=== PATIENT | male | born 1980 | race Caucasian/White ===

== ENCOUNTER 2020-05-14 06:30 | Inpatient (IN) | payer OTHER ==
[~2020-05-14] VITALS: Ht 177.8 cm; Wt 80.8 kg
[2020-05-14 06:40] VITALS: Ht 177.8 cm; Wt 80.8 kg
[2020-05-14 07:42] LABS: BASOPHIL % 0.3 % (0.2-1.5); PLATELET COUNT 233 x10^3mcL (152-348); RED CELL DISTRIBUTION WIDTH 13.3 % (12.1-16.2)
[2020-05-14 08:36] LABS: CARBON DIOXIDE 28.5 mmol/L (21-32); CHLORIDE SERUM 103 mmol/L (98-107); CREATININE SERUM 0.7 mg/dL (0.7-1.3); GFR1 > 60 mL/min; GLUCOSE SERUM 118 mg/dL (74-106); POTASSIUM SERUM 4.4 mmol/L (3.5-5.1); SODIUM SERUM 138 mmol/L (136-145)
[2020-05-14 08:41] LABS: ALBUMIN 4.2 g/dL (3.4-5.0); ALKALINE PHOSPHATASE 74 U/L (46-116); ALT/SGPT 78 U/L (16-63); AST/SGOT 40 U/L (15-37); BILIRUBIN TOTAL 0.8 mg/dL (0.20-1.00); LIPASE 123 IU/L (73-393); TOTAL PROTEIN, SERUM 7.1 g/dL (6.4-8.2)
[2020-05-14 10:31] LABS: UA SPECIFIC GRAVITY 1.015 (1.005-1.035); microscopic required? YES; urine erythrocyte NEGATIVE (NEGATIVE)
[2020-05-14 14:20] LABS: CHOLESTEROL/HDL RATIO 2.8; MAGNESIUM 2.2 mg/dL (1.8-2.4); PHOSPHOROUS 3.5 mg/dL (2.5-4.9)
[2020-05-14 14:22] LABS: T3 TOTAL 1.5 ng/mL
[2020-05-14 14:50] VITALS: BP 142/61
[2020-05-14 16:27] LABS: FREE T4 1.03 ng/dL (0.76-1.46); FREE THYROXINE INDEX 2.5 ug/dL (1.4-4.5); T4(THYROXINE) 7.5 ug/dL (4.7-13.3)
[2020-05-14 18:20] VITALS: BP 155/81
[2020-05-14 20:50] VITALS: BP 135/78
[2020-05-15 05:32] VITALS: BP 127/76
[2020-05-15 06:18] LABS: BASOPHIL % 0.2 % (0.2-1.5); PLATELET COUNT 212 x10^3mcL (152-348); RED CELL DISTRIBUTION WIDTH 13.8 % (12.1-16.2)
[2020-05-15 07:00] LABS: CARBON DIOXIDE 21.7 mmol/L (21-32); CHLORIDE SERUM 105 mmol/L (98-107); CREATININE SERUM 0.6 mg/dL (0.7-1.3); GFR1 > 60 mL/min; GLUCOSE SERUM 99 mg/dL (74-106); POTASSIUM SERUM 4.2 mmol/L (3.5-5.1); SODIUM SERUM 141 mmol/L (136-145)
[2020-05-15 07:48] VITALS: BP 145/87
[2020-05-15 12:05] VITALS: BP 152/87
[2020-05-15 16:10] VITALS: BP 139/89
[2020-05-15 20:15] VITALS: BP 120/71
[2020-05-16 05:45] VITALS: BP 114/79
[2020-05-16 07:52] VITALS: BP 126/72
[2020-05-16 12:34] VITALS: BP 126/72
[2020-05-16 18:25] LABS: CALCIUM 8.7 mg/dL (8.5-10.1); CARBON DIOXIDE 28.7 mmol/L (21-32); CHLORIDE SERUM 104 mmol/L (98-107); CREATININE SERUM 0.7 mg/dL (0.7-1.3); GFR1 > 60 mL/min; GLUCOSE SERUM 96 mg/dL (74-106); MAGNESIUM 2.2 mg/dL (1.8-2.4); POTASSIUM SERUM 4.3 mmol/L (3.5-5.1); SODIUM SERUM 136 mmol/L (136-145)
[2020-05-17 15:00] LABS: BASOPHIL % 0.2 % (0-2); PLATELET COUNT 213 x10^3mcL (130-400); RED CELL DISTRIBUTION WIDTH 13.9 % (11.5-14.5)
== END 2020-05-16 12:48 | disposition home or self-care (01) | DRG 390 ==
LOC: ED 06:30 → MU 11:50
PROVIDERS: Emergency Medicine; ADMIT Family Medicine; ATTEND Family Medicine
PROC: 0D9670Z Drainage of Stomach with Drainage Device, Via Natural or Artificial Opening (ICD-10-PCS; principal; 2020-05-14)
DX: K56.609 Unspecified intestinal obstruction, unspecified as to partial versus complete obstruction (principal); Z20.822 Contact with and (suspected) exposure to COVID-19; R74.01 Elevation of levels of liver transaminase levels; K76.0 Fatty (change of) liver, not elsewhere classified; R73.9 Hyperglycemia, unspecified; K59.00 Constipation, unspecified; D72.829 Elevated white blood cell count, unspecified
CPT/HCPCS: 84439; G0378; J2270; J2405; J7030; J7120; Q9967